=== PATIENT | male | born 2000 | race Caucasian/White ===

== ENCOUNTER 2023-06-23 08:46 | Outpatient (CLI) | payer OTHER, SELFPAY | END 2023-06-23 08:47 | disposition home or self-care (01) | LOC: BICRAD 08:46 | PROVIDERS: ATTEND Surgery | DX: S22.49XA Multiple fractures of ribs, unspecified side, initial encounter for closed fracture (principal) | CPT/HCPCS: 71046 ==

== ENCOUNTER 2023-11-06 23:08 | Emergency (ER) | payer OTHER | END 2023-11-07 01:18 | disposition home or self-care (01) | LOC: ERS 23:08 | DX: S42.021A Displaced fracture of shaft of right clavicle, initial encounter for closed fracture (principal); S90.812A Abrasion, left foot, initial encounter; V29.408A Other motorcycle driver injured in collision with unspecified motor vehicles in traffic accident, initial encounter | CPT/HCPCS: 23500; 71045 ==